=== PATIENT | female | born 1930 | race Caucasian/White ===

== ENCOUNTER 2018-12-27 12:15 | Inpatient (IN) | payer OTHER ==
[~2018-12-27] VITALS: Ht 160 cm; Wt 59.4 kg
[2018-12-27] MEDS ORDERED: ACETAMINOPHEN 325 MG TAB PO ONE (13:15)
[2018-12-27 14:36] LABS: Basophils # (auto) 0.1 uL; Basophils % (auto) 0.7 % (0.0-2.0); Eosinophils # (auto) 0.2 uL; Eosinophils % (auto) 2.3 % (0.0-7.0); Hematocrit 35.1 % (36.0-46.0); Hemoglobin 11.9 g/dL (12.2-16.2); Lymphocytes # (auto) 2.9 uL; Mean Corpuscular Hemoglobin 28.9 pg (28.0-32.0); Monocytes # (auto) 0.9 uL; Monocytes % (auto) 10.2 % (0.0-12.0); Neutrophils # (auto) 4.9 uL; Neutrophils % (auto) 54.8 % (37.0-80.0); Platelet Count (auto) 331 10^3/uL (140-450); Red Blood Cells 4.13 10^6/uL (4.0-5.20); Red Cell Distribution Width 12.8 % (11.8-14.3)
[2018-12-27 14:46] LABS: Albumin 3.2 g/dL (3.4-5.0); BUN/Creatinine Ratio 18.1; Magnesium 2.2 mg/dL (1.6-2.6); Potassium 3.4 mmol/L (3.5-5.1)
[2018-12-27 14:51] LABS: Bilirubin, Total 0.5 mg/dL (0.2-1.0); Total Protein 7.1 g/dL (6.4-8.2)
[2018-12-27] MEDS ORDERED: LORazepam 0.5 MG TAB PO PRN (20:45)
[2018-12-27] MEDS ORDERED: ONDANSETRON HCL 4 MG/2 ML VIAL IV PRN (20:45)
[2018-12-27] MEDS ORDERED: ACETAMINOPHEN 500 MG TAB PO PRN (20:45)
[2018-12-27] MEDS ORDERED: POTASSIUM CHL 20 Meq TABLET PO ONE (20:45)
[2018-12-27 21:20] LABS: Cholesterol 213 mg/dL (< 200); Triglycerides 157 mg/dL (< 150)
[2018-12-27 21:22] LABS: HDL Cholesterol 49 mg/dL (40-59); LDL Cholesterol 138 mg/dL (< 100)
[2018-12-27] MEDS: HYDROcodone-ACET 5/325MG TAB PO PRN (21:50)
--- NOTE | 2018-12-27 22:30 | NUR ---
OPENING NOTE RECEIVED PATIENT FROM ER. NO REPORT RECEIVED AT THIS TIME. PATIENT IS AOx4 AND SHOWING NO SIGN OF DISTRESS, SHORTNESS OF BREATH, AND PATIENT DENIES PAIN AT THIS TIME. PATIENT EDUCATED ON PLAN OF CARE FOR THE NIGHT AND PATIENT VERBALIZES UNDERSTANDING. BED LOWERED, CALL LIGHT WITHIN REACH, AND PATIENT WILL BE ROUNDED ON EVERY HOUR AND NEEDED.
--- NOTE | 2018-12-27 22:30 | NUR ---
HOSPITALIST CONTACTED PATIENT HAS ELEVATED BP 200/79. REQUESTED BP MEDICATION. ORDERS RECEIVED. WILL ADMINISTER AT THIS TIME. WILL CONTINUE TO MONITOR.
[2018-12-27] MEDS ORDERED: cloNIDine HCL 0.1 MG TAB PO ONE (22:45)
[2018-12-27 23:00] VITALS: BP 200/79
[2018-12-28 01:17] VITALS: BP 140/55
[2018-12-28 05:00] VITALS: BP 149/50
[2018-12-28 06:40] LABS: Potassium 3.9 mmol/L (3.5-5.1)
[2018-12-28 06:44] LABS: BUN/Creatinine Ratio 18.8
[2018-12-28 06:54] LABS: Basophils # (auto) 0 uL; Basophils % (auto) 0.5 % (0.0-2.0); Eosinophils # (auto) 0.3 uL; Eosinophils % (auto) 2.9 % (0.0-7.0); Hematocrit 33.2 % (36.0-46.0); Hemoglobin 11.6 g/dL (12.2-16.2); Lymphocytes # (auto) 3.5 uL; Lymphocytes % (auto) 37.6 % (10.0-50.0); Mean Corpuscular Hemoglobin 29.4 pg (28.0-32.0); Mean Corpuscular Volume 84.1 fL (80.0-100.0); Monocytes # (auto) 0.9 uL; Monocytes % (auto) 9.9 % (0.0-12.0); Neutrophils # (auto) 4.6 uL; Neutrophils % (auto) 49.1 % (37.0-80.0); Nucleated Red Blood Cells % 0.1 %; Platelet Count (auto) 352 10^3/uL (140-450); Red Blood Cells 3.95 10^6/uL (4.0-5.20); Red Cell Distribution Width 12.7 % (11.8-14.3); White Blood Cell 9.3 10^3/uL (4.4-10.8)
--- NOTE | 2018-12-28 08:00 | NUR ---
Opening Shift Note Assumed care of patient, awake and alert. No S/S of distress/SOB or pain. Patient is moderate assist with ambulation. Instructed on POC and to call for assist PRN, will continue to monitor for changes Q1hr and PRN.
[2018-12-28 09:00] VITALS: BP 149/51
--- NOTE | 2018-12-28 10:56 | NUR ---
Cardiology Consult Dr. Varela at bedside, patient is advised. New orders received. Will continue care.
[2018-12-28 13:00] VITALS: BP 146/48
[2018-12-28] MEDS: HYDROcodone-ACET 5/325MG TAB PO PRN (13:27)
[2018-12-28] MEDS ORDERED: amLODIPine BESYLATE 5 MG TAB PO ONE (15:45)
[2018-12-28] MEDS ORDERED: MORPHINE SULFATE 4 MG/ML SYR/VIAL IV PRN (15:45)
[2018-12-28] MEDS ORDERED: IOHEXOL 350 MG/ML 100ML IJ ONE (15:47)
--- NOTE | 2018-12-28 17:00 | NUR ---
ENTERED ROOM TO DO VITALS, PATIENT AND FAMILY VERY UPSET AFTER SPEAKING WITH DOCTOR. PATIENT REFUSED VITALS AT THIS TIME. NEVAEH PEREZ NOTIFIED.
[2018-12-28] MEDS: HYDROcodone-ACET 10/325MG TAB PO PRN (19:14)
--- NOTE | 2018-12-28 19:33 | NUR ---
Oncology consult called in for Dr. Ashford thru his exchange. Waiting for call back.
--- NOTE | 2018-12-28 19:45 | NUR ---
Opening Shift Note Assumed care of patient, patient sleeping, wakes to verbal stimuli, oriented x 3, reoriented to place and situation, patient verbalized understanding, patient follows directions. On room air with o2 sat at 92-93%, even and unlabored respirations, no s/s of distress or SOB. Patient was turned with moderate assistance, blanchable redness noted to right medial buttock, turned patient and will continue to turn q2hrs throughout shift. IV intact and patent. Bed low locked position with side rails up x 2 and call light within reach, bed alarm on. patient denies pain at this time. Instructed on POC and to call for assist PRN, will continue to monitor for changes Q1hr and PRN.
[2018-12-28 20:00] VITALS: BP 145/56
[2018-12-28 20:16] LABS: Urine Bacteria NONE SEEN /hpf (None Seen); Urine Blood 1+ /uL (Negative); Urine WBC 1478 /hpf (0 - 5); Urine WBC Clumps PRESENT /hpf (None Seen)
[2018-12-28 22:00] VITALS: BP 145/56
[2018-12-28] MEDS: ATORVASTATIN 20 MG TAB PO SCH (22:58)
[2018-12-29 04:59] VITALS: BP 167/46
--- NOTE | 2018-12-29 05:25 | NUR ---
Paged MD Lacey regarding BP 167/46 spoke with covering MD Mayes, updated on patient status, new order received for Hydralazine 10mg IV Q6HRS PRN SBP>160. Read back and verified. will continue care.
[2018-12-29] MEDS: hydrALAZINE HCL 20 MG/ML VL IV PRN ×3 (05:37→21:55)
--- NOTE | 2018-12-29 05:40 | NUR ---
Patient refusing PRN Hydralazine educated patient on purpose, importance of medication, risk of not taking medication, patient verbalizes understanding and states "I'm going to wait for my daughter to get here. It doesn't really matter anymore because with the cancer I don't have a lot of time" re-educated patient and instructed on POC for oncology consult, patient verbalized understanding but refuses.
--- NOTE | 2018-12-29 07:04 | NUR ---
Closing Note patient resting in bed with even and unlabored respirations, no s/s of distress. IV intact and patent. Patient was turned q2hrs throughout shift and tolerated well. Bed low locked position with side rails up x 2 and call light within reach. Endorsed care to day shift RN.
--- NOTE | 2018-12-29 07:30 | NUR ---
Morning note patient resting in supine position with even and unlabored respirations on RA. Patient opened eyes to name. Instructed patient on POC, fall precautions and to call for assistance as needed. Patient verbalized understanding. patient denies needing assistance at this time. Fall precautions in place with call light within reach. Bed alarm on for safety. Will continue to monitor q1hr & PRN.
--- NOTE | 2018-12-29 08:25 | NUR ---
RE: Bone scan Brayan, from Nuclear Medicine, notified this RN that the ordered bone scan can not be completed today. This RN will notify MD during patient rounds.
[2018-12-29 09:00] VITALS: BP 165/64
--- NOTE | 2018-12-29 09:31 | NUR ---
Updated MD RE: Bone Scan Updated Dr. Roman Haley regarding nuclear medicine not able to complete the ordered bone scan. MD verbalized understanding. Ordered this RN to notify Dr. Ashford. Informed MD of patient's UA results. MD to review patient's chart.
[2018-12-29 09:39] LABS: Basophils # (auto) 0 uL; Basophils % (auto) 0.5 % (0.0-2.0); Eosinophils # (auto) 0.4 uL; Eosinophils % (auto) 4.4 % (0.0-7.0); Hematocrit 36.1 % (36.0-46.0); Hemoglobin 12.1 g/dL (12.2-16.2); Lymphocytes # (auto) 2.8 uL; Lymphocytes % (auto) 30.1 % (10.0-50.0); Mean Corpuscular Hgb Conc. 33.6 g/dL (32.0-36.0); Mean Corpuscular Volume 86.4 fL (80.0-100.0); Monocytes # (auto) 0.9 uL; Monocytes % (auto) 10.2 % (0.0-12.0); Neutrophils # (auto) 5.1 uL; Neutrophils % (auto) 54.8 % (37.0-80.0); Nucleated Red Blood Cells % 0.2 %; Platelet Count (auto) 314 10^3/uL (140-450); Red Blood Cells 4.18 10^6/uL (4.0-5.20); White Blood Cell 9.3 10^3/uL (4.4-10.8)
--- NOTE | 2018-12-29 09:41 | NUR ---
Notified RE: Bone Scan Notified Dr. Ashford that ordered bone scan cannot be completed at this time. Spoke with Julia.
[2018-12-29 09:47] LABS: BUN/Creatinine Ratio 23.7; Calcium 9.1 mg/dL (8.5-10.1); Potassium 3.5 mmol/L (3.5-5.1); Prothrombin Time 10.7 sec (9.27-12.13)
[2018-12-29] MEDS: amLODIPine BESYLATE 5 MG TAB PO SCH (10:27)
[2018-12-29] MEDS: DEXAMETHASONE SOD PHOS 4 MG/1ML SDV INJ IV SCH ×2 (10:27→21:16)
--- NOTE | 2018-12-29 10:40 | NUR ---
Patient refused BP PRN medication Patient educated on MD's orders for PRN BP medication. Patient verbalized understanding and refused medication. Patient stated "I would rather just take the pill."
[2018-12-29] MEDS ORDERED: GADOPENTETATE DIMEGLUMINE (10MMOL/20 ML) VIAL IV ONE (11:23)
--- NOTE | 2018-12-29 12:09 | NUR ---
RE: Needle guided Biopsy Family is at bedside. Family updated on POC and orders from Dr. Ashford. Family refusing ordered needle guided biopsy. Patient stated "we don't want her to go through that. There is no point. We just want to know how long she has." This RN called Frank in MRI to notify. Voicemail left. This RN called radiology to notify. Spoke with Damian in radiology. Notified Dr. Ashford. Spoke with Julia.
[2018-12-29] MEDS: HYDROcodone-ACET 10/325MG TAB PO PRN (12:46)
[2018-12-29 13:00] VITALS: BP 176/92
[2018-12-29] MEDS ORDERED: LEVOFLOXACIN 500 MG TAB PO ONE (13:15)
--- NOTE | 2018-12-29 14:47 | NUR ---
RE: One time dose of Levaquin Attempted to administer the one time dose Levaquin that MD ordered. Patient is resting with eyes closed. Patient responds with a moan to verbal. Unsafe at this time to administer PO medication. Will waste medication in the medication pyxis and attempt administration at a later time.
[2018-12-29 17:00] VITALS: BP 157/58
--- NOTE | 2018-12-29 18:46 | NUR ---
End of shift patient resting in bed with even and unlabored respirations on RA. Family at bedside. Fall precautions in place with call light within reach. Will endorse care to RN.
--- NOTE | 2018-12-29 20:00 | NUR ---
Opening Shift Note Assumed care of patient, patient sleeping, wakes to verbal stimuli, oriented x 4, patient follows directions. On room air with even and unlabored respirations, no s/s of distress or SOB. Patient was turned with moderate assistance. IV intact and patent. Bed low locked position with side rails up x 2 and call light within reach, bed alarm on. patient denies pain at this time. Instructed on POC and to call for assist PRN, will continue to monitor for changes Q1hr and PRN.
[2018-12-29] MEDS: ATORVASTATIN 20 MG TAB PO SCH (21:17)
[2018-12-29 22:00] VITALS: BP 163/72
[2018-12-30 05:00] VITALS: BP 156/65
--- NOTE | 2018-12-30 07:00 | NUR ---
Closing Note patient sleeping in bed with even and unlabored respirations, noted chest rise and fall. no s/s of distress. IV intact and patent. SCD's on to bilateral legs with machine on. Bed low locked position with side rails up x 2 and call light within reach, bed alarm on. Endorsed care to day shift RN.
--- NOTE | 2018-12-30 07:15 | NUR ---
Morning note patient resting in supine position with even and unlabored respirations on RA with eyes closed. Fall precautions in place with call light within reach. Unable to place bed alarm (rental bed). Will continue to monitor q1hr & PRN.
[2018-12-30 09:00] VITALS: BP 111/70
[2018-12-30] MEDS: DEXAMETHASONE SOD PHOS 4 MG/1ML SDV INJ IV SCH ×2 (09:37→20:47)
[2018-12-30] MEDS: amLODIPine BESYLATE 5 MG TAB PO SCH (09:37)
[2018-12-30] MEDS: LEVOFLOXACIN 250 MG TAB PO SCH (09:37)
[2018-12-30 12:42] VITALS: BP 115/50
--- NOTE | 2018-12-30 15:03 | NUR ---
RE: pain This RN was notified by NA that patient was reporting pain and requesting pain medication. This RN removed ordered PRN pain medication and brought it to bedside. Patient seen resting on the right lateral side with eyes closed. Patient opened eyes to verbal. Patient denies pain at this time and refused pain medication. Pain medication returned to the medication pyxis. Instructed patient and family at bedside to notify staff if pain medication is requested. Patient and family at bedside verbalized understanding.
--- NOTE | 2018-12-30 15:50 | NUR ---
assessment Patient is a 88 year old female who is alert and oriented at times. Per patients daughter Janice prior to admission patient lived home with her and functioned with assistance. Per Janice she will return home to her prior living arrangements post discharge and family will transport her home. Per Janice patient has a fww, cane, and wheelchair for home use. Per Janice patients PCP is Dr Devries. I informed Janice she has a right to speak to a social security specialist regarding all care. I informed Malvinusha she has a right to participate in any and all discharge planning. Janice is aware of visiting hours on the hospital floor. I informed Janice she has a right to privacy. Patient has a POA and advanced directive. Janice verbalized understanding and agreed to discharge plan. Per ss consult possible hospice. Per Janice REA called in [facility] yesterday. Per Janice she would like to speak with [facility] hospice and [facility]. Barb from [facility] and Michael from [facility] has met with Janice. Waiting for her decision now. Addendum: 12/30/18 at 1624 by Grace BECKFORD Amended: Links added.
[2018-12-30 17:00] VITALS: BP 137/74
--- NOTE | 2018-12-30 17:45 | NUR ---
was at bedside - Dr. Makeda Ashford was at bedside discussing POC with the patient and patient's family at bedside.
--- NOTE | 2018-12-30 18:45 | NUR ---
Family and patient agree to hospice upon discharge Patient and family spoke with this RN. Paged Dr. Roman Lacey to update MD per MD's request.
--- NOTE | 2018-12-30 18:49 | NUR ---
End of shift patient resting in bed with even and unlabored respirations on RA. Family precautions in place with call light within reach. Family at bedside.
--- NOTE | 2018-12-30 19:45 | NUR ---
Opening Shift Note Assumed care of patient, oriented x 4, patient follows directions. On room air with even and unlabored respirations, no s/s of distress or SOB. Patient was turned with moderate assistance. IV intact and patent. Bed low locked position with side rails up x 2 and call light within reach, bed alarm on. patient denies pain at this time. SCD's on to bilateral legs with machine on. Instructed on POC and to call for assist PRN, will continue to monitor for changes Q1hr and PRN.
[2018-12-30] MEDS: ATORVASTATIN 20 MG TAB PO SCH (20:47)
[2018-12-30 22:00] VITALS: BP 151/58
[2018-12-31 05:32] VITALS: BP 143/73
--- NOTE | 2018-12-31 08:00 | NUR ---
RECEIVED PT RESTING IN BED, CALL LIGHT WITHIN REACH, PT DENIES ANY PAIN OR DISCOMFORT AT THIS TIME, PT TURNED AND REPOSITION, WILL CONTINUE TO MONITOR PT.
[2018-12-31 09:00] VITALS: BP 164/72
[2018-12-31] MEDS: DEXAMETHASONE SOD PHOS 4 MG/1ML SDV INJ IV SCH (09:40)
[2018-12-31] MEDS: amLODIPine BESYLATE 5 MG TAB PO SCH (09:40)
[2018-12-31] MEDS: LEVOFLOXACIN 250 MG TAB PO SCH (09:40)
[2018-12-31] MEDS ORDERED: DEX4T PO (12:40)
--- NOTE | 2018-12-31 12:45 | NUR ---
PATIENT HAS ACCEPTED [facility] AND WILL DISCHARGE TODAY. [facility] WILL MAKE ARRANGEMENTS FOR TRANSPORTATION HOME. [facility] PHONE NUMBER [phone].
[2018-12-31 13:00] VITALS: BP 160/67
[2018-12-31 15:15] VITALS: BP 160/67
--- NOTE | 2018-12-31 16:55 | NUR ---
Discharge instructions given as ordered. Encourage to follow up with PMD as instructed. All questions and concerns addressed. Patient's grand daughter verbalized understanding. Medication reconciliation form completed and copy given to patient's grand daughter. No home medications held in Pharmacy, and no needed vaccines to be given. IV removed with catheter intact, pressure dressing applied. Telemetry unit returned to [facility].
--- NOTE | 2018-12-31 17:30 | NUR ---
[facility] here to [facility] pick[facility] pt, Patient taken to vehicle via gurney, pt's grand-daughter took all pt's personal belongings, pt accompanied by staff and family member. No distress noted at time of departure.
== END 2018-12-31 17:30 | disposition hospice, home (50) | DRG 181 ==
LOC: EDBD 12:15 → ER 12:15 → TELE 20:41 → TELE-WESTW 22:20
PROVIDERS: ADMIT Nurse Practitioner Family; ATTEND Internal Medicine
DX: C34.92 Malignant neoplasm of unspecified part of left bronchus or lung (principal); C79.51 Secondary malignant neoplasm of bone; E44.1 Mild protein-calorie malnutrition; C79.72 Secondary malignant neoplasm of left adrenal gland; E87.6 Hypokalemia; I25.10 Atherosclerotic heart disease of native coronary artery without angina pectoris; D64.9 Anemia, unspecified; I10 Essential (primary) hypertension; E78.5 Hyperlipidemia, unspecified; M54.16 Radiculopathy, lumbar region; E07.9 Disorder of thyroid, unspecified; M10.9 Gout, unspecified; Z82.3 Family history of stroke; Z82.49 Family history of ischemic heart disease and other diseases of the circulatory system; I25.2 Old myocardial infarction; Z87.891 Personal history of nicotine dependence; Z68.23 Body mass index [BMI] 23.0-23.9, adult
CPT/HCPCS: 36415; 70553; 71045; 71250; 71260; 72131; 74177; 76536; 80048; 80053; 80061; 81001; 82105; 82378; 83735; 84443; 84484; 85025; 85610; 85730; 87086; 93005; 93306; 94761; A6257; G0378; J1100